=== PATIENT | female | born 1975 | race Caucasian/White ===

== ENCOUNTER 2024-07-20 08:48 | Outpatient (AMB) | payer BC, SELFPAY ==
--- NOTE | 2024-07-20 08:58 | MHC.PC.OV ---
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 Allergies nitrofurantoin [From Macrodantin] Allergy (Intermediate, Verified 07/20/24 09:02) Rash Tobacco use date assessed: 07/20/24 Dental Screening Dental Screen Date: 07/20/24 Did you have a dental visit in the last 12 months?: Yes Did you have a dental problem in the last 6 months where you did not have access to dental care?: No Was dental information given to patient?: Patient has dentist HPI HPI Comments History of Present Illness Details The patient is a 48 year old female with a past medical history of multiple thyroid nodules, seasonal allergies, abnormal mammogram presenting to [facility] History of UTI in February. Took two rounds of abx. Thought perhap kidney stones as flank pain and hematuria however u/s without stones. Mulitple thyroid nodules: Last us 2021. Due for repeat Pap: 05/2024 Declines colonoscopy testing until 51 y/o Tdap 11/2024 will receive today ROS CONSTITUTIONAL: Denies weight loss, fever and chills. HEENT: Denies changes in vision and hearing. RESPIRATORY: Denies SOB and cough. CV: Denies palpitations and CP GI: Denies abdominal pain, nausea, vomiting and diarrhea. : Denies dysuria and urinary frequency. MSK: Denies new myalgia and joint pain. SKIN: Denies rash and pruritus. NEUROLOGICAL: Denies headache PSYCHIATRIC: Denies recent changes in mood. PHYSICAL EXAM: GENERAL: Alert and oriented x 3. NAD EYES: EOMI. Anicteric. HENT: Moist mucous membranes. No scleral icterus. No cervical lymphadenopathy. LUNGS: Clear to auscultation bilaterally. CARDIOVASCULAR: Regular rate and rhythm. No murmur. No JVD. ABDOMEN: Soft, non-tender +bs EXTREMITIES: No edema. Non-tender. SKIN: No rashes or lesions. Warm. NEUROLOGIC: No focal neurological deficits. CN II-XII grossly intact PSYCHIATRIC: Cooperative. 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 1. Little interest or pleasure in doing things: not at all 2. Feeling down, depressed, or hopeless: not at all 3. Trouble falling or staying asleep, or sleeping too much: several days 4. Feeling tired or having little energy: several days 5. Poor appetite or overeating: not at all 6. Feeling bad about yourself - or that you are a failure or have let yourself or your family down: not at all 7. Trouble concentrating on things, such as reading the newspaper or watching television: several days 8. Moving or speaking so slowly that other people could have noticed. Or the opposite - being so fidgety or restless that you have been moving around a lot more than usual: not at all 9. Thoughts that you would be better off or of hurting yourself in some way: not at all Total score: 3 Depression Screening Interpretation: Negative (Neg) Depression Screening Done: Yes 84548 - PHQ-9 Billing: Yes Source: Developed by Drs. Boston Esparza, Keiry Cruz, Perez Bowie and colleagues, with an educational tico from [employer]. Thrive Questionnaire Date Thrive assessed: 07/20/24 I am a: Patient What is your living situation today?: I have a steady place to live Within the past 12 months, did the food you bought not last and you didn't have the money to get more?: Never true Within the past 12 months, did you worry whether your food would run out before you got money to buy more?: Never true Do you have trouble paying for medicines?: No Do you have trouble getting transportation to medical appointments?: No Do you have trouble paying your heating and electricity bill?: No Do you have trouble taking care of your child, family member or friend?: No Do you have trouble with day-to-day activities such as bathing, preparing meals, shopping, managing finances, etc.?: No Are you currently unemployed and looking for a job?: No Are you interested in more education?: No Please select the resources that you would like help with: None Currently or been in a relationship where the following occur: No concerns reported THRIVE Score: 0 AUDIT C Alcohol Use Questionnaire (AUDIT-C) 1. How often do you have a drink containing alcohol?: Never 3. How often do you have six or more drinks on one occasion?: Never Total Score: 0 RACHEAL-7 AMB Questionnaire RACHEAL-7 Date RACHEAL - 7 assessed: 07/20/24 Feeling nervous, anxious, or on edge: 1 = Several days Not being able to stop or control worryin = Not at all Worrying too much about different things: 1 = Several days Trouble relaxin = Not at all Being so restless that it is hard to sit still: 0 = Not at all Becoming easily annoyed or irritable: 0 = Not at all Feeling afraid as if something awful might happen: 1 = Several days Total RACHEAL-7 score (0-4 normal; 5-9 mild; 10-14 moderate; 15-21 severe): 3 Source: Developed by Drs. Boston Esparza, Keiry Cruz, Perez Bowie and colleagues, with an educational tico from [employer]. RACHEAL-7 Assessment Billing RACHEAL-7 Assessment Tool: RACHEAL-7 Assessment 28486 Physical exam (Primary Care) Vital Signs: Last Vital Signs Temp 98.1 F 07/20/24 09:04 Pulse 78 07/20/24 09:04 Resp 12 07/20/24 09:04 BP 94/54 L 07/20/24 09:04 Pulse Ox 98 07/20/24 09:04 Oxygen Delivery Method Room Air 07/20/24 09:04 BMI result Body Mass Index 22.5 Tobacco/Smoking Status: Tobacco use Status Tobacco use date assessed 07/20/24 07/20/24 09:06 Patient Tobacco Use Status Never used Tobacco 07/20/24 09:06 e-Cigarette/Vaping Use Never Used 07/20/24 09:06 Depression Screening Interpretation: Negative (Neg) Currently or been in a relationship where the following occur: No concerns reported Assessment and Plan Assessment & Plan (1) Multiple thyroid nodules: Code(s): E04.2 - Nontoxic multinodular goiter Plan: repeat us ordered (2) History of hematuria: Code(s): Z87.448 - Personal history of other diseases of urinary system Plan: resolved Orders: Orders US thyroid Today E04.2 - Nontoxic multinodular goiter T Spot TB Today E04.2 - Nontoxic multinodular goiter, Z11.1 - Encounter for screening for respiratory tuberculosis Referrals Dermatology Referral E04.1 - Nontoxic single thyroid nodule, R92.8 - Other abnormal and inconclusive findings on diagnostic imaging of breast, Z11.1 - Encounter for screening for respiratory tuberculosis, Z76.89 - Persons encountering health services in other specified circumstances Coding Level of Care Code Est Pt Level 4 (75227) Complex EM visit Add On G2211 Diagnoses Multiple thyroid nodules E04.2 History of hematuria Z87.448 Additional Codes RACHEAL-7 Assessment Billing - RACHEAL-7 Assessment Tool: RACHEAL-7 Assessment 85135 ([id number])
[2024-07-20 09:04] VITALS: BP 94/54; PULSE 78; RESP 12; TEMP 36.7; O2SAT 98; BMI 22.5
== END 2024-07-20 10:12 | disposition home or self-care (01) ==
PROVIDERS: Visit Provider Internal Medicine
DX: E04.2 Nontoxic multinodular goiter (principal); Z87.448 Personal history of other diseases of urinary system; Z23 Encounter for immunization
CPT/HCPCS: 90471; 90715; 99214

== ENCOUNTER 2024-07-20 10:15 | Outpatient (REF) | payer BC, SELFPAY ==
[2024-07-22 22:43] LABS: TS Negative Control Passed; TS Panel A 2; TS Panel B 0; TS Positive Control Passed; TSpotTB Negative (Negative)
== END 2024-07-20 10:16 | disposition home or self-care (01) ==
LOC: HO.WFDLDS 10:15
PROVIDERS: Visit Provider Internal Medicine
DX: E04.2 Nontoxic multinodular goiter (principal); Z11.1 Encounter for screening for respiratory tuberculosis
CPT/HCPCS: 36415; 86481

== ENCOUNTER 2025-04-14 16:33 | Outpatient (REF) | payer BC, SELFPAY ==
--- NOTE | ~2025-04-14 | US_ITS ---
EXAMINATION: US THYROID HISTORY: E04.2 - Nontoxic multinodular goiter TECHNIQUE: Real-time grayscale ultrasound imaging was performed and images were reviewed. COMPARISON: There are no prior studies for comparison. FINDINGS: SIZE: The right thyroid lobe measures 4.7 x 1.8 x 1.5 cm. The left thyroid lobe measures 5.4 x 1.6 x 1.7 cm. The isthmus measures 2 mm. FLOW: Flow to the gland is normal. ECHOGENICITY: The echotexture of the gland is homogeneous. NODULES: Multiple bilateral thyroid nodules are identified as described below: Nodule #: 1 Location: Midportion of the right thyroid lobe measuring 1.5 x 0.9 x 0.7 cm. Shape: Taller than wide (3 points) Margins: Smooth (0 points) Echotexture: Hypoechoic (2 points) Composition: Solid (2 points) Calcifications: Macrocalcifications (1 point) Total points: 8 TIRADS: TR5: Highly suspicious. Nodule #: 2 Location: Midportion of the left thyroid lobe measuring 1.0 x 0.6 x 0.9 cm. Shape: Wider than tall (0 points) Margins: Ill-defined (0 points) Echotexture: Isoechoic (1 point) Composition: Mixed (1 point) Calcifications: None (0 points) Total points: 2 TIRADS: TR2: Not suspicious Nodule #: 3 Location: Lower pole of the left thyroid lobe Shape: Wider than tall (0 points) Margins: Ill-defined (0 points) Echotexture: Isoechoic (1 point) Composition: Solid (2 points) Calcifications: None (0 points) Total points: 3 TIRADS: TR3: Mildly suspicious. US/US thyroid IMPRESSION: Highly suspicious nodule in the midportion of the right thyroid lobe as described above. According to ACR TI-RADS guidelines below, ultrasound-guided fine-needle aspiration is recommended. ACR TI-RADS Guidelines TR1 (0 points): Benign, No follow-up or biopsy required TR2 (2 points): Not Suspicious, No biopsy or follow up indicated TR3 (3 points): Mildly Suspicious, FNA if >= 2.5 cm, Follow if >= 1.5 cm TR4 (4-6 points): Moderately Suspicious, FNA if >= 1.5 cm, Follow if >= 1.0 cm TR5 (>=7 points): Highly Suspicious, FNA if >= 1.0 cm, Follow if >= 0.5 cm Electronically signed by: Boston Roberts MD 04/15/2025 07:18 AM EDT
== END 2025-04-14 16:34 | disposition home or self-care (01) ==
LOC: HO.US 16:33
PROVIDERS: PCP Internal Medicine; Visit Provider Internal Medicine
DX: E04.2 Nontoxic multinodular goiter (principal)
CPT/HCPCS: 76536

== ENCOUNTER → 2025-04-14 16:35 | Outpatient (BNV) | payer BC, SELFPAY | PROVIDERS: PCP Internal Medicine; Visit Provider Radiology Diagnostic Radiology | DX: E04.2 Nontoxic multinodular goiter (principal) | CPT/HCPCS: 76536 ==

== ENCOUNTER 2025-05-17 16:07 | Outpatient (AMB) | payer BC, SELFPAY ==
--- NOTE | 2025-05-17 16:12 | A.OFFPC_ITS ---
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: No Allergies nitrofurantoin (From Macrodantin) Allergy (Intermediate, Verified 05/17/25 16:14) Rash Tobacco use date assessed: 05/17/25 Dental Screening Dental Screen Date: 05/17/25 Did you have a dental visit in the last 12 months?: Yes Did you have a dental problem in the last 6 months where you did not have access to dental care?: No Was dental information given to patient?: Patient has dentist HPI HPI Comments History of Present Illness0 Details The patient is a 48 year old female with a past medical history of multiple thyroid nodules, seasonal allergies, abnormal mammogram presenting for CPE Seasonal allergies-continues claritin Mulitple thyroid nodules: Ultrasound 2021, repeated 03/2025. Three nodules, one of which is suspicious and FNA recommended. 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 She says her appointment for this summer was cancelled. She believes she is overdue for pap Declines colonoscopy testing until 51 y/o she is agreeable to cologuard. Tdap UTD Mammo is due-ordered ROS CONSTITUTIONAL: Denies weight loss, fever and chills. HEENT: Denies changes in vision and hearing. RESPIRATORY: Denies SOB and cough. CV: Denies palpitations and CP GI: Denies abdominal pain, nausea, vomiting and diarrhea. : Denies dysuria and urinary frequency. MSK: Denies new myalgia and joint pain. SKIN: Denies rash and pruritus. NEUROLOGICAL: Denies headache PSYCHIATRIC: Denies recent changes in mood. PHYSICAL EXAM: GENERAL: Alert and oriented x 3. NAD EYES: EOMI. Anicteric. HENT: Moist mucous membranes. No scleral icterus. No cervical lymphadenopathy. LUNGS: Clear to auscultation bilaterally. CARDIOVASCULAR: Regular rate and rhythm. No murmur. No JVD. ABDOMEN: Soft, non-tender +bs EXTREMITIES: No edema. Non-tender. SKIN: No rashes or lesions. Warm. NEUROLOGIC: No focal neurological deficits. CN II-XII grossly intact PSYCHIATRIC: Cooperative. 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 1. Little interest or pleasure in doing things: not at all 2. Feeling down, depressed, or hopeless: not at all 3. Trouble falling or staying asleep, or sleeping too much: several days 4. Feeling tired or having little energy: several days 5. Poor appetite or overeating: not at all 6. Feeling bad about yourself - or that you are a failure or have let yourself or your family down: not at all 7. Trouble concentrating on things, such as reading the newspaper or watching television: not at all 8. Moving or speaking so slowly that other people could have noticed. Or the opposite - being so fidgety or restless that you have been moving around a lot more than usual: not at all 9. Thoughts that you would be better off or of hurting yourself in some way: not at all Total score: 2 Depression Screening Interpretation: Negative Depression Screening Done: Yes 46708 - PHQ-9 Billing: Yes Source: Developed by Drs. Boston Esparza, Keiry Cruz, Perez Bowie and colleagues, with an educational tico from [employer]. Thrive Questionnaire Date Thrive assessed: 07/20/24 I am a: Patient What is your living situation today?: I have a steady place to live Within the past 12 months, did the food you bought not last and you didn't have the money to get more?: Never true Within the past 12 months, did you worry whether your food would run out before you got money to buy more?: Never true Do you have trouble paying for medicines?: No Do you have trouble getting transportation to medical appointments?: No Do you have trouble paying your heating and electricity bill?: No Do you have trouble taking care of your child, family member or friend?: No Do you have trouble with day-to-day activities such as bathing, preparing meals, shopping, managing finances, etc.?: No Are you currently unemployed and looking for a job?: No Are you interested in more education?: No Please select the resources that you would like help with: None Currently or been in a relationship where the following occur: No concerns reported THRIVE Score: 0 AUDIT C Alcohol Use Questionnaire (AUDIT-C) 1. How often do you have a drink containing alcohol?: Never 3. How often do you have six or more drinks on one occasion?: Never Total Score: 0 RACHEAL-7 AMB Questionnaire RACHEAL-7 Date RACHEAL - 7 assessed: 07/20/24 Feeling nervous, anxious, or on edge: 0 = Not at all Not being able to stop or control worryin = Not at all Worrying too much about different things: 1 = Several days Trouble relaxin = Several days Being so restless that it is hard to sit still: 0 = Not at all Becoming easily annoyed or irritable: 0 = Not at all Feeling afraid as if something awful might happen: 0 = Not at all Total RACHEAL-7 score (0-4 normal; 5-9 mild; 10-14 moderate; 15-21 severe): 2 Source: Developed by Drs. Boston Esparza, Keiry Cruz, Perez Bowie and colleagues, with an educational tico from [employer]. Physical exam (Primary Care) Vital Signs: Last Vital Signs Temp 98.1 F 05/17/25 16:15 Pulse 91 05/17/25 16:15 Resp 12 05/17/25 16:15 BP 116/68 05/17/25 16:15 Pulse Ox 98 05/17/25 16:15 Oxygen Delivery Method Room Air 05/17/25 16:15 BMI result Body Mass Index 23.2 Tobacco/Smoking Status: Tobacco use Status Tobacco use date assessed 05/17/25 05/17/25 16:17 Patient Tobacco Use Status Never used Tobacco 05/17/25 16:17 e-Cigarette/Vaping Use Never Used 05/17/25 16:17 PHQ-9: PHQ-9 Score PHQ-9: Total score 2 05/18/25 04:59 Depression Screening Interpretation: Negative Thrive Assessment: Date of Thrive Assessment Date Thrive assessed 07/20/24 05/17/25 16:17 Currently or been in a relationship where the following occur: No concerns reported Coding Level of Care Code Est Pt Prev Care 40-64y(39076) Diagnoses Physical exam Z00.00 Seasonal allergies J30.2 Multiple thyroid nodules E04.2 Additional Codes PHQ-9 - 51165 - PHQ-9 Billing: Yes ([id number]) Assessment & Plan Assessment & Plan (1) Physical exam: Code(s): Z00.00 - Encounter for general adult medical examination without abnormal findings (2) Seasonal allergies: Code(s): J30.2 - Other seasonal allergic rhinitis Category: Medical (3) Multiple thyroid nodules: Code(s): E04.2 - Nontoxic multinodular goiter Category: Medical Plan 49 year old for CPE Interval history reviewed Prevnetive measures for age discussed. Mammo, cologuard ordered. Referral to marketing services coordinator Suspicious thyroid nodule-referral to ENT placed Orders: Orders MM screening mammo BI 05/17/25 Z12.31 - Encounter for screening mammogram for malignant neoplasm of breast Complete Blood Count Auto Diff 05/17/25 E04.2 - Nontoxic multinodular goiter, Z00.00 - Encounter for general adult medical examination without abnormal findings, Z13.0 - Encounter for screening for diseases of the blood and blood- forming organs and certain disorders involving the immune mechanism, Z13.220 - Encounter for screening for lipoid disorders, Z13.228 - Encounter for screening for other metabolic disorders Comprehensive Met. Panel 05/17/25 E04.2 - Nontoxic multinodular goiter, Z00.00 - Encounter for general adult medical examination without abnormal findings, Z13.0 - Encounter for screening for diseases of the blood and blood-forming organs and certain disorders involving the immune mechanism, Z13.220 - Encounter for screening for lipoid disorders, Z13.228 - Encounter for screening for other metabolic disorders Lipid Panel 05/17/25 E04.2 - Nontoxic multinodular goiter, Z00.00 - Encounter for general adult medical examination without abnormal findings, Z13.0 - Encounter for screening for diseases of the blood and blood-forming organs and certain disorders involving the immune mechanism, Z13.220 - Encounter for screening for lipoid disorders, Z13.228 - Encounter for screening for other metabolic disorders TSH reflex Free T4 05/17/25 E04.2 - Nontoxic multinodular goiter, Z00.00 - Encounter for general adult medical examination without abnormal findings, Z13.0 - Encounter for screening for diseases of the blood and blood-forming organs and certain disorders involving the immune mechanism, Z13.220 - Encounter for screening for lipoid disorders, Z13.228 - Encounter for screening for other metabolic disorders Vitamin D 25-OH (D2 and D3) 05/17/25 E04.2 - Nontoxic multinodular goiter, Z00.00 - Encounter for general adult medical examination without abnormal findings, Z13.0 - Encounter for screening for diseases of the blood and blood- forming organs and certain disorders involving the immune mechanism, Z13.220 - Encounter for screening for lipoid disorders, Z13.228 - Encounter for screening for other metabolic disorders Referrals Endocrinology Referral E04.2 - Nontoxic multinodular goiter 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
[2025-05-17 16:15] VITALS: BP 116/68; PULSE 91; RESP 12; TEMP 36.7; O2SAT 98; BMI 23.2
--- OUTSIDE RECORDS SUMMARY | 2025-05-17 17:31 | XMS_ITS | Continuity of Care Document ---
Author Organization [facility] [address] [place] [address] Phone [phone] Care Team Providers Care Strategic Analyst Name Role Phone Nia Little M.D. Care Team Information Rec eiver [phone] Social History Type Date Description Comments Sex Female Sex Unknown Medical Devices Description No Information Available Encounters Description No Information Available Assessments Description No Information Available Plan of Treatment No Information Available Functional Status Description No Information Available Mental Status Description No Information Available Referrals Refer to Reason for Referral Status Appt Roselia Espinoza M.D. Created [address] [place] [address] Drive [address] [place] [address] [phone]
== END 2025-05-17 16:45 | disposition home or self-care (01) ==
LOC: HO.HMCFM 16:08
PROVIDERS: Visit Provider Internal Medicine
DX: Z00.00 Encounter for general adult medical examination without abnormal findings (principal); J30.2 Other seasonal allergic rhinitis; E04.2 Nontoxic multinodular goiter

== ENCOUNTER → 2025-05-17 16:07 | Outpatient (BNVA) | payer BC, SELFPAY | PROVIDERS: Visit Provider Internal Medicine | DX: Z00.00 Encounter for general adult medical examination without abnormal findings (principal); Z13.31 Encounter for screening for depression; J30.2 Other seasonal allergic rhinitis; E04.2 Nontoxic multinodular goiter | CPT/HCPCS: 96127 ==

== ENCOUNTER 2025-05-19 11:34 | Outpatient (REF) | payer BC, SELFPAY ==
[2025-05-19 13:13] LABS: Alanine Aminotransferase 23 U/L (0-31); Albumin Level 4.4 g/dL (3.5-5.0); Alkaline Phosphatase 44 U/L (39-117); Anion Gap 13 (12-20); Aspartate Amino Transferase 33 U/L (5-31); Bilirubin Total 0.5 mg/dL (0.0-1.0); Blood Urea Nitrogen 8 mg/dL (9-16); Calcium 9.7 mg/dL (8.4-10.2); Carbon Dioxide 25 mmol/L (22-29); Chloride 103 mmol/L (96-108); Cholesterol 220 mg/dL (<200); Estimated Glomerular Filt Rate > 60; Glucose Random 85 mg/dL (60-115); HDL Cholesterol 75 mg/dL (>40); LDL Cholesterol Calculated 118 mg/dL (<100); Potassium 4.5 mmol/L (3.3-5.1); Sodium 136 mmol/L (135-145); Total Protein 7.8 g/dL (6.5-8.0); Triglycerides 136 mg/dL (<150)
[2025-05-19 13:21] LABS: TSH reflex Free T4 0.64 uIU/mL (0.32-4.0)
--- OUTSIDE RECORDS SUMMARY | 2025-05-19 13:47 | XMS_ITS | Continuity of Care Document ---
Author Organization [facility] [address] [place] [address] Phone [phone] Care Team Providers Care Document Clerk Name Role Phone Nia Little M.D. Care Team Information Rec eiver [phone] Social History Type Date Description Comments Sex Female Sex Unknown Medical Devices Description No Information Available Encounters Description No Information Available Assessments Description No Information Available Plan of Treatment No Information Available Functional Status Description No Information Available Mental Status Description No Information Available Referrals Refer to Reason for Referral Status Appt Roselia Espinoza M.D. Created [address] [place] [address] Drive [address] [place] [address] [phone]
[2025-05-23 14:43] LABS: Vitamin D 25-OH, D2 <4 ng/mL; Vitamin D 25-OH, D3 30 ng/mL; Vitamin D 25-OH, Total 30 ng/mL (30-100)
== END 2025-05-19 11:35 | disposition home or self-care (01) ==
LOC: HO.LAB 11:34
PROVIDERS: PCP Internal Medicine; Visit Provider Internal Medicine
DX: E04.2 Nontoxic multinodular goiter (principal); Z00.00 Encounter for general adult medical examination without abnormal findings; Z13.228 Encounter for screening for other metabolic disorders; Z13.220 Encounter for screening for lipoid disorders; Z13.0 Encounter for screening for diseases of the blood and blood-forming organs and certain disorders involving the immune mechanism
CPT/HCPCS: 36415; 80053; 80061; 82306; 84443